=== PATIENT | male | born 1955 | race African-American/Black ===

== ENCOUNTER 2017-05-25 12:15 | Emergency (ER) | payer OTHER ==
[~2017-05-25] VITALS: Ht 185.4 cm; Wt 75.0 kg
[2017-05-25 12:23] VITALS: Ht 185.4 cm; Wt 75.0 kg
[2017-05-25] MEDS ORDERED: HYDROCODONE/APAP (10/325) TAB PO ONE (13:30)
--- NOTE | 2017-05-25 15:51 | RADRPT ---
PROCEDURE: Soft tissue view of the neck CLINICAL INDICATION: Choking TECHNIQUE: AP and lateral views of the neck was obtained. COMPARISON: None FINDINGS: The airway is patent. No radiopaque foreign body is seen. The epiglottis and aryepiglottic folds a re normal. The prevertebral soft tissues are normal. Anterior cervical discectomy with interbody f usion is seen at C5-6. IMPRESSION: Unremarkable soft tissue views of the neck. RPTAT: HPNM Physician Victorina Date Time Electronically viewed and signed by Cade Reyes Physician on 05/25/2017 15:50 /
[2017-05-25] MEDS ORDERED: HYDR-906 PO (16:19)
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
[2017-05-25 16:50] VITALS: BP 122/72; PULSE 75; RESP 18; TEMP 98.4
== END 2017-05-25 16:50 | disposition home or self-care (01) ==
LOC: FTE 12:15
DX: R09.89 Other specified symptoms and signs involving the circulatory and respiratory systems (principal); J44.9 Chronic obstructive pulmonary disease, unspecified; I10 Essential (primary) hypertension; F17.210 Nicotine dependence, cigarettes, uncomplicated
CPT/HCPCS: 70360; Z7502; Z7610